=== PATIENT | female | born 2000 | race Caucasian/White ===

== ENCOUNTER 2022-01-31 12:01 | Outpatient (REF) | payer OTHER, SELFPAY ==
[2022-02-01 15:15] LABS: Chlamydia Result Negative (Negative); GC Result Negative (Negative)
== END 2022-01-31 12:02 | disposition home or self-care (01) ==
LOC: LBN 12:01
PROVIDERS: Visit Provider Nurse Practitioner Women's Health
DX: Z11.3 Encounter for screening for infections with a predominantly sexual mode of transmission (principal)
CPT/HCPCS: 87491; 87591

== ENCOUNTER 2022-03-29 20:16 | Outpatient (REF) | payer OTHER, SELFPAY ==
[2022-03-31 15:08] LABS: Chlamydia Result Negative (Negative); GC Result Negative (Negative)
== END 2022-03-29 20:17 | disposition home or self-care (01) ==
LOC: LBN 20:16
PROVIDERS: Visit Provider Nurse Practitioner Women's Health
DX: N76.0 Acute vaginitis (principal); Z11.3 Encounter for screening for infections with a predominantly sexual mode of transmission
CPT/HCPCS: 87491; 87591; 87480; 87510; 87660